=== PATIENT | male | born 1960 | race Caucasian/White ===

== ENCOUNTER 2018-06-05 07:41 | Emergency (ER) | payer BC, OTHER ==
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
[2018-06-05] MEDS ORDERED: Ibuprofen TAB* 600 MG PO ONE (08:07)
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
[2018-06-05 09:39] VITALS: BP 153/96
== END 2018-06-05 09:38 | disposition home or self-care (01) ==
LOC: ED 07:41
DX: S16.1XXA Strain of muscle, fascia and tendon at neck level, initial encounter (principal); V43.52XA Car driver injured in collision with other type car in traffic accident, initial encounter; Y93.89 Activity, other specified; Y92.410 Unspecified street and highway as the place of occurrence of the external cause; M50.221 Other cervical disc displacement at C4-C5 level; M50.323 Other cervical disc degeneration at C6-C7 level; E07.9 Disorder of thyroid, unspecified; K21.9 Gastro-esophageal reflux disease without esophagitis; M19.012 Primary osteoarthritis, left shoulder; M19.011 Primary osteoarthritis, right shoulder
CPT/HCPCS: 72125; 99282; A9270-GY